=== PATIENT | female | born 1995 | race Caucasian/White ===

== ENCOUNTER 2017-01-12 10:55 | Emergency (ER) | payer MEDICAID ==
[~2017-01-12] VITALS: Ht 163.8 cm; Wt 59.5 kg
[2017-01-12 12:12] LABS: ASPARTATE AMINO TRANSFERASE 20 U/L (15-37); BLOOD UREA NITROGEN 11 mg/dL (7-18)
[2017-01-12 15:32] VITALS: BP 115/70
== END 2017-01-12 15:37 | disposition home or self-care (01) ==
LOC: ED 15:15
DX: N83.292 Other ovarian cyst, left side (principal); R10.9 Unspecified abdominal pain; R11.0 Nausea
CPT/HCPCS: 36415; 76830; 80053; 81003; 83690; 84703; 85025